=== PATIENT | male | born 1960 | race Hispanic/Latino ===

== ENCOUNTER 2018-01-02 23:15 | Emergency (ER) | payer SELFPAY ==
[2018-01-02] MEDS ORDERED: MAG HYDROX/AL HYDROX/SIMETH ES 30 ML SUSP UDCUP ONE (23:36)
[2018-01-02] MEDS ORDERED: LIDOCAINE HCL 2% VISCOUS 15 ML UDCUP ONE (23:36)
[2018-01-02] MEDS ORDERED: HYDRALAZINE HCL 20 MG/ML VIAL ONE (23:37)
[2018-01-02] MEDS: ACETAMINOPHEN-CODEINE ELIXIR 5 ML UDCUP ONE (23:59)
== END 2018-01-03 00:20 | disposition home or self-care (01) ==
LOC: EDH 23:15
DX: I10 Essential (primary) hypertension (principal); F43.9 Reaction to severe stress, unspecified; R51 Headache; K29.70 Gastritis, unspecified, without bleeding; Z87.442 Personal history of urinary calculi
CPT/HCPCS: 96374; 99284; J0360

== ENCOUNTER 2020-12-14 15:52 | Emergency (ER) | payer SELFPAY ==
[2020-12-14 16:11] LABS: BASOPHILS % (AUTO) 0.2 % (0.0-5.0); HEMATOCRIT 45.8 % (42-54); LYMPHOCYTES % (AUTO) 22.2 % (21.0-51.0); MEAN CORPUSCULAR VOLUME 87.9 fL (79-99); PLATELET COUNT (AUTO) 177 K/uL (130-400); RED BLOOD CELL COUNT(AUTO) 5.21 MIL/uL (4.50-6.20); RED CELL DISTRIBUTION WIDTH 12.7 % (11.0-15.5); WHITE BLOOD COUNT (AUTO) 4.9 K/uL (4.8-10.8)
[2020-12-14 16:19] LABS: CREATININE 1.2 mg/dL (0.5-1.5)
[2020-12-14 16:21] LABS: INR 1.03 (0.85-1.15)
[2020-12-14 16:22] LABS: PARTIAL THROMBOPLASTIN TIME 31.3 SEC (26.3-35.5)
[2020-12-14 16:24] LABS: ALBUMIN 3.7 g/dL (3.5-5.0); BILIRUBIN,TOTAL 0.5 mg/dL (0.2-1.0); TOTAL PROTEIN, SERUM 7.5 g/dL (6.0-8.3)
[2020-12-14] MEDS ORDERED: MORPHINE SULFATE 2 MG/ML 1ML SYG ONE (16:48)
[2020-12-14] MEDS ORDERED: IOHEXOL-350 75 ML VIAL IV ONE (17:34)
== END 2020-12-14 19:40 | disposition home or self-care (01) ==
LOC: EDH 15:52
DX: U07.1 COVID-19 (principal); R10.13 Epigastric pain
CPT/HCPCS: 36415; 71045; 74177; 80053; 82550; 84484 ×2; 85025; 85610; 85730; 87426; 93005 ×2; 96361; 96374; 96375; 99285; Q9967

== ENCOUNTER 2025-01-13 17:39 | Emergency (ER) | payer SELFPAY ==
[~2025-01-13] VITALS: Ht 180.3 cm; Wt 108.4 kg
--- NOTE | 2025-01-13 17:50 | ERN ---
ED Note History of Present Illness Stated Complaint: BACK PAIN Chief Complaint: Low Back Pain/Injury Time Seen by MD: 17:41 Dictation: In his a 64-year-old male coming in today with complaints of left lower lumbosacral pain tenderness that does not radiate onset was Monday. He states I did something stupid and I was lifting something heavy at work when I felt the pain in my back. Denies any past medical history, no change in bowel or bladder function no change in genitourinary function. He has not taken anything prior to arrival for pain. Allergies: Coded Allergies: No Known Allergies (Unverified Allergy, Unknown, 01/13/25) Past Medical History Past Medical History: High Cholesterol, Heart Disease, Hypertension Additional Past Medical Hx: BACK PAIN Surgical History: Other Surgical History Other: HEART STENTS, RN Note Reviewed/Agreed w/PFSH: Yes Review of System Dictation CONSTITUTIONAL: Negative except for HPI HEAD/FACE: Negative except for HPI EENT: Negative except for HPI RESPIRATORY: Negative except for HPI GASTROINTESTINAL/ABDOMINAL: Negative except for HPI GENITOURINARY: Negative except for HPI MUSCULOSKELETAL: Negative except for HPI left lumbosacral pain lateral INTEGUMENTARY: Negative except for HPI NEUROLOGICAL/PSYCH: Negative except for HPI HEMATOLOGIC/LYMPHATIC: Negative except for HPI All Systems Negative, Except as noted above. 13 point review of systems assessed and all negative except for above. Initial Vital Sign VS Vital Signs Date Time Temp Pulse Resp B/P (MAP) Pulse Ox O2 Delivery O2 Flow Rate FiO2 01/13/25 17:43 97.9 76 16 178/98 99 Room Air 0 Physical Exam Dictation Vital Signs reviewed General Appearance: Alert, oriented x 3, mild acute distress, well developed, nourished. Head and Face: non-traumatic. Eyes: PERRL, pink conjunctivas, eyelid no trauma, anterior chamber with arcus senilis. Ears: Pinnas intact and no signs of trauma or erythema ear canals clear and no discharge TM no erythema Nose: No discharge, no bleeding. Oropharynx: Mouth normal, tongue pink, pharynx clear,no erythema, tonsils no exudates, no abscesses noted, mucous membrane moist Neck: Supple, non-tender, no thyromegaly, no masses, no JVD, no bruits Breast:Deferred Chest:No tenderness, no crepitus, no paradoxical movement, no retractions Lungs:Clear, well-ventilated, symmetric, no rales, no wheezing, no rhonchi, no stridor, good breath sounds bilaterally Heart: Regular rate, regular rhythm, no murmur, no gallops Vascular: no peripheral edema, Abdomen: Soft, positive bowel sounds, nondistended, no guarding, nontender, no rebound, no masses no hepatomegaly, no splenomegaly, no Johnson's sign, no hernias. Rectal: Deferred Genital: Deferred Neurological: No decreased range of motion with tenderness to left lateral lumbosacral. Negative straight leg raise 10 bilaterally. No step-offs. No Midline spine Extremities: nontender, full range of motion Skin: Color pink, dry, no turgor, no rash, no lacerations, no abrasions, no contusions. Lymphatic: Deferred Results (Laboratory/Radiology) Laboratory/Radiology 183 LUMBAR X-RAY DEMONSTRATES DEGENERATIVE CHANGES ONLY. Labs Reviewed?: Yes ED Course ED Course Orders Procedure Category Date Status Time Ketorolac 60mg/2ml PHA 01/13/25 Complete (Toradol 60mg/2ml) 18:00 Dexamethasone 4mg/Ml PHA 01/13/25 Complete 1ml Vial (Dexametha 18:00 Hydrocodone/Apap PHA 01/13/25 Complete 5/325 ([place] 5/325mg) 18:00 Cyclobenzaprine Hcl PHA 01/13/25 Complete (Cyclobenzaprine Hcl 18:00 Lumbar Spine 2-3vws RAD 01/13/25 Taken 17:47 Current Medications Medications (Trade) Dose Ordered Sig/Finesse Route PRN Reason Start Time Stop Time Status Last Admin Dose Admin Acetaminophen/ Hydrocodone Bitart (NORco 5/325MG) 1 tab ONCE ONCE PO 01/13/25 18:00 01/13/25 18:01 DC Cyclobenzaprine HCl (Cyclobenzaprine HCl) 10 mg ONCE ONCE PO 01/13/25 18:00 01/13/25 18:01 DC Dexamethasone Sodium Phosphate (dexaMETHasone 4MG/ML 1ML VIAL) 8 mg ONCE ONCE IM 01/13/25 18:00 01/13/25 18:01 DC Ketorolac Tromethamine (toRADol 60MG/ 2ML) 60 mg ONCE ONCE IM 01/13/25 18:00 01/13/25 18:01 DC Vital Signs Date Time Temp Pulse Resp B/P (MAP) Pulse Ox O2 Delivery O2 Flow Rate FiO2 01/13/25 17:43 97.9 76 16 178/98 99 Room Air 0 835 PATIENT WILL BE DISCHARGED HOME WITH A ACUTE LUMBAR STRAIN, WE SENT HOME WITH IBUPROFEN/FLEXERIL/MEDROL DOSEPAK. GIVEN INSTRUCTIONS FOR WARM COMPRESSES THREE TO 4 TIMES A DAY AND NO LIFTING GREATER THAN 10 LB UNTIL CLEARED BY HIS DOCTOR. Medical Decision Making MDM MEDICAL DISCHARGE MAKING BASED ON PAIN MANAGEMENT FOR LUMBAR STRAIN AND X-RAY. X-RAY DEMONSTRATES TENDER DEGENERATIVE CHANGES ONLY PATIENT DISCHARGED HOME WITH A ACUTE LUMBAR STRAIN GIVEN INSTRUCTIONS FOR NO LIFTING GREATER THAN 10 LB AND TAKE MEDICATIONS DIRECTED SEE HIS PRIMARY CARE DOCTOR FOR FOLLOW UP DX & DISP Disposition: Discharge Departure Impression: Primary Impression: Acute lumbar myofascial strain Additional Impression: DJD (degenerative joint disease), lumbar Condition: Stable Scripts Methylprednisolone (Medrol) 4 Mg Tab.ds.pk 1 TAB PO AD for 6 Days, #21 TAB 0 Refills 6 on day 1 then reduce by one tablet daily until gone Prov: NEEL HARMAN NP 01/13/25 Cyclobenzaprine HCl (Cyclobenzaprine HCl) 10 Mg Tablet 1 TAB PO TID for muscle spasms for 10 Days, #30 TAB 0 Refills Prov: NEEL HARMAN NP 01/13/25 Ibuprofen (Ibuprofen 800 mg Tab) 800 Mg Tab 800 MG PO Q8H PRN for fever or pain, #30 TAB 0 Refills Prov: NEEL HARMAN NP 01/13/25 Additional Instructions: FOLLOW-UP WITH PRIMARY CARE PROVIDER IN 1 TO 2 DAYS. TAKE MEDICATIONS DIRECTED HERE IN THE EMERGENCY ROOM. OKAY TO CONTINUE HOME MEDICATIONS UNLESS OTHERWISE DISCUSSED DURING YOUR VISIT IN THE EMERGENCY ROOM TODAY. RETURN TO YOUR NEAREST EMERGENCY ROOM IF SYMPTOMS WORSEN OR IF THERE IS NO IMPROVEMENT. CALL 911 IF YOU NEED IMMEDIATE ASSISTANCE. TAKE TYLENOL OR MOTRIN [id number] NEEDED AND IF NO CONTRAINDICATIONS ARE PRESENT. INCREASE ORAL HYDRATION. A WOUND CULTURE OR URINE CULTURE WAS ORDERED HERE IN THE EMERGENCY ROOM DEPARTMENT PLEASE FOLLOW-UP WITH PRIMARY CARE PROVIDER AND ADVISE THEM TO GET REPEAT PORTS FROM OUR FACILITY. IF YOU HAD ANY JUSTINA WRAP/SPLINTS THAT WERE APPLIED HERE, PLEASE DO NOT REMOVE THEM UNTIL YOU SEE YOUR PRIMARY CARE OR SPECIALTY. NO LIFTING GREATER THAN 10 LB UNTIL CLEARED BY YOUR DOCTOR. WARM COMPRESSES TO PAIN THREE TO 4 TIMES A DAY. TAKE IBUPROFEN AND FLEXERIL EVERY8 HOURS WITH FOOD FOR THE NEXT THREE DAYS. Referrals: HARI CASILLAS MD (PCP) Time of Disposition: 18:37 I have reviewed the case, and I agree with, Diagnosis and Plan NEEL HARMAN NP Jan 13, 2025 17:50
[2025-01-13] MEDS ORDERED: IBUP-2077 PO (18:38)
[2025-01-13] MEDS ORDERED: CYCL-309 PO (18:38)
[2025-01-13] MEDS ORDERED: METH4TAB3 PO (18:38)
[2025-01-13 19:48] VITALS: BP 175/92; PULSE 75; RESP 16; TEMP 98.1; O2SAT 98
[2025-01-13] MEDS: HYDROcodone/APAP 5/325 1 TAB TABLET PO ONE (20:01)
[2025-01-13] MEDS: ketOROlac 60 MG VIAL (30MG/ML) IM ONE (20:01)
[2025-01-13] MEDS: dexaMETHasone SOD PHOSPHATE 4 MG/ML 1ML VIAL IM ONE (20:01)
[2025-01-13] MEDS: CYCLOBENZAPRINE HCL 10 MG TABLET PO ONE (20:01)
--- NOTE | 2025-01-13 20:31 | HMCIMG ---
EXAM: LUMBAR SPINE 2-3VWS REASON: Acute onset left lower lumbosacral pain after lifting four days. COMPARISON: None. TECHNIQUE: 3 views of the lumbar spine were obtained. FINDINGS: There is normal appearance of the lumbar vertebral bodies. There is moderate degenerative narrowing at L4-5 and L5-S1. There are degenerative changes in the facets. Alignment is normal. There are no visible fractures. Soft tissues appear unremarkable. IMPRESSION: 1. Moderate lumbar degenerative change, no acute finding.
== END 2025-01-13 20:24 | disposition home or self-care (01) ==
LOC: EDH 17:39
DX: S39.012A Strain of muscle, fascia and tendon of lower back, initial encounter (principal); M47.816 Spondylosis without myelopathy or radiculopathy, lumbar region; E78.00 Pure hypercholesterolemia, unspecified; I10 Essential (primary) hypertension; Z95.5 Presence of coronary angioplasty implant and graft; X58.XXXA Exposure to other specified factors, initial encounter; Y93.89 Activity, other specified; Y92.89 Other specified places as the place of occurrence of the external cause; Y99.8 Other external cause status
CPT/HCPCS: 99284; 72100; 96372 ×2; J1100; J1885

== ENCOUNTER 2025-06-02 22:37 | Emergency (ER) | payer SELFPAY ==
[~2025-06-02] VITALS: Ht 180.3 cm; Wt 114.8 kg
[~2025-06-02 22:37] MED LIST: CYCL-309 PO; IBUP-2077 PO; METH4TAB3 PO
[2025-06-02 22:39] VITALS: TEMP 98.3
[2025-06-02 23:31] LABS: IMMATURE GRANULOCYTE ABSOLUTE 0.04 K/uL (0-1); NUCLEATED RED BLOOD CELLS 0.0 % (0.0-0.19); PLATELET COUNT (AUTO) 171 K/uL (130-400); RED BLOOD CELL COUNT(AUTO) 4.98 MIL/uL (4.50-6.20); RED CELL DISTRIBUTION WIDTH 13.0 % (11.0-15.5); WHITE BLOOD COUNT (AUTO) 8.0 K/uL (4.8-10.8)
--- NOTE | 2025-06-03 00:40 | NUR ---
PER PT HIT HIS R LOWER LEG WITH HAMMER WEEK AGO. FOR PAST 2 DAYS R LOWER LEG HAS STARTED WITH REDNNESS AND MORE SWOLLEN IN COMPARISON TO LLE . T HAS HX OF CARDIAC STENTS, HTN, HIGH COLESTEROL. CURRENTLY TAKING BRILLINTA. PT DENIES ANY SOB OR CP. PULSES PALPABLE. PT DOES HAVE BILAT EDEMA TO LOWER EXTREMITES
--- NOTE | 2025-06-03 00:42 | NUR ---
PT TO US AT THIS TIME
[2025-06-03 00:45] VITALS: BP 132/84; PULSE 80; RESP 18; O2SAT 99
[2025-06-03] MEDS ORDERED: CEPH500B PO (01:22)
--- NOTE | 2025-06-03 01:24 | ERN ---
General Chief Complaint: Lower Extremity Pain/Injury Stated Complaint: C/O RT LEG PAIN W/SWELLING TO RT FOOT Time Seen by MD: 22:41 Source: patient History of Present Illness Initial Comments 64-year-old male who hit himself on his right anterior vaughan with a hammer by mistake a week ago. Since then he has noticed increased swelling in his right ankle and also redness on the anterior surface of his vaughan. No fevers or chills no difficulty walking. Allergies: Coded Allergies: No Known Allergies (Unverified Allergy, Unknown, 01/13/25) Home Meds Active Scripts Methylprednisolone (Medrol) 4 Mg Tab.ds.pk, 1 TAB PO AD for 6 Days, #21 TAB 0 Refills 6 on day 1 then reduce by one tablet daily until gone Prov:NEEL HARMAN NP 01/13/25 Cyclobenzaprine HCl (Cyclobenzaprine HCl) 10 Mg Tablet, 1 TAB PO TID for muscle spasms for 10 Days, #30 TAB 0 Refills Prov:NEEL HARMAN NP 01/13/25 Ibuprofen (Ibuprofen 800 mg Tab) 800 Mg Tab, 800 MG PO Q8H PRN for fever or pain, #30 TAB 0 Refills Prov:NEEL HARMAN NP 01/13/25 Past Medical History Past Medical History: High Cholesterol, Hypertension Medical History Other: BACK PAIN Past Surgical History: Other Surgical History Other: CARDIAC STENTS Constitutional: (-) chills, (-) diaphoresis, (-) fever, (-) malaise, (-) weakness, (-) other documentation EENTM: (-) eye pain, (-) blurred vision, (-) tearing, (-) double vision, (-) ear pain, (-) ear discharge, (-) nose pain, (-) nose congestion, (-) throat pain, (-) Throat swelling, (-) mouth pain, (-) tooth pain, (-) mouth swelling, (-) other documentation Respiratory: (-) cough, (-) orthopnea, (-) short of breath, (-) stridor, (-) wheezing, (-) other documentation Cardiovascular: (-) chest pain, (-) edema, (-) palpitations, (-) syncope, (-) dyspnea on exertion, (-) other documentation Gastrointestinal/Abdominal: (-) nausea, (-) vomiting, (-) diarrhea, (-) abdominal pain, (-) abdominal distention, (-) constipation, (-) rectal bleeding, (-) dark stool/melena, (-) other documentation Musculoskeletal: (-) Neck pain, (-) back pain, (-) Flank Pain, (-) joint pain, (-) joint swelling, (-) muscle pain, (-) muscle stiffness, (-) gout, (-) other documentation Skin: (+) other documentation (Right anterior calf is red and warm.) Physical Exam Extremities Comment Right anterior vaughan has some warmth and erythema. The distal ankle is swollen with the edema. It is nontender it is soft. Results Laboratory and Microbiology Lab and Micro Result Laboratory Tests Test 06/02/25 23:26 White Blood Count 8.0 K/uL (4.8-10.8) Red Blood Count 4.98 MIL/uL (4.50-6.20) Hemoglobin 14.7 g/dL (14.0-18.0) Hematocrit 44.8 % (42-54) Mean Corpuscular Volume 90.0 fL (79-99) Mean Corpuscular Hemoglobin 29.5 pg (27.0-33.0) Mean Corpuscular Hemoglobin Concent 32.8 g/dL (32.0-36.0) Red Cell Distribution Width 13.0 % (11.0-15.5) Platelet Count 171 K/uL (130-400) Mean Platelet Volume 10.0 fL (7.5-10.5) Immature Granulocyte % (Auto) 0.5 % (0-1) Neutrophils (%) (Auto) 68.7 % (40.0-77.0) Lymphocytes (%) (Auto) 19.1 % (21.0-51.0) L Monocytes (%) (Auto) 7.5 % (3.0-13.0) Eosinophils (%) (Auto) 3.6 % (0.0-8.0) Basophils (%) (Auto) 0.6 % (0.0-5.0) Neutrophils # (Auto) 5.5 K/uL (1.8-7.7) Lymphocytes # (Auto) 1.5 K/uL (1.0-4.8) Monocytes # (Auto) 0.6 K/uL (0.1-1.0) Eosinophils # (Auto) 0.29 K/uL (0.00-0.70) Basophils # (Auto) 0.05 K/uL (0.00-0.20) Absolute Immature Granulocyte (auto 0.04 K/uL (0-1) Nucleated Red Blood Cells 0.0 % (0.0-0.19) B-Type Natriuretic Peptide 53 pg/mL (0-100) MDM Ultrasound of the patient's bilateral lower extremities for DVTs was negative. They did see a hypoechoic area with the increased vascularity approximately 3.5 x 1 x 3 point 1 cm ED Course Orders Procedure Category Date Status Time Us Venous Doppler US 06/02/25 Taken Bilateral 23:17 Cbc With Differential LAB 06/02/25 Complete 23:17 B-Type Natriuretic LAB 06/02/25 Complete Peptide 23:17 Vital Signs Date Time Temp Pulse Resp B/P (MAP) Pulse Ox O2 Delivery O2 Flow Rate FiO2 06/03/25 00:45 80 18 132/84 99 Room Air* 0 21 06/02/25 23:29 64 18 132/91 98 Room Air* 0 21 06/02/25 22:39 98.2 71 20 166/89 97 Room Air DX & DISP Disposition: Discharge Departure Impression: Primary Impression: Hematoma of right lower leg Condition: Stable Scripts Cephalexin Monohydrate (Keflex) 500 Mg Cap 500 MG PO QID for 7 Days, #28 CAP Prov: STEFANIA HENRY MD 06/03/25 Additional Instructions: You have a collection of blood underneath her skin most likely from when the hammer hit your vaughan. Your body will absorb it over time. Keeping the leg raised when your sitting and treating it with warm compresses we will help. You can take Tylenol and or ibuprofen for pain. I have written a prescription for antibiotics treat the skin warmth. It may not be an infection it may just be a reaction to the blood underneath the skin but I have written for a few days of antibiotics to be safe. Please return if the redness on your anterior vaughan gets worse and starts to spread up her leg. Also feel free to come back if you think that the blood circulation to your foot is getting bad. The swelling should go down in the next week or so. Feel free to follow up with her primary care physician if it does not. Referrals: JED ROJAS MD (PCP) STEFANIA HENRY MD Jun 03, 2025 01:24
--- NOTE | 2025-06-03 02:10 | HMCIMG ---
EXAM: US for Deep Venous Thrombosis, bilateral Lower Extremity. CLINICAL HISTORY: Swelling. TECHNIQUE: Real-time ultrasound scan of the veins of the bilateral lower extremity with color Doppler flow, spectral waveform analysis, and compression. COMPARISON: None provided. FINDINGS: DEEP VEINS: The common femoral, superficial femoral, and popliteal veins are echolucent and compressible. There is normal color Doppler flow throughout. The visualized calf veins appear patent. SOFT TISSUES: In the right anterior calf area, there is a hypoechoic area with no vascularity measuring 3.5 x 1.0 x 3.1 cm, likely a hematoma. 3.5 cm enlarged lymph node in the right groin region. IMPRESSION: No deep venous thrombosis is evident on bilateral lower extremity examination. In the right anterior calf area, there is a hypoechoic area with no vascularity measuring 3.5 x 1.0 x 3.1 cm, likely a hematoma. Right groin lymphadenopathy. /Marisa
== END 2025-06-03 01:35 | disposition home or self-care (01) ==
LOC: EDH 22:37
DX: S80.11XA Contusion of right lower leg, initial encounter (principal); E78.00 Pure hypercholesterolemia, unspecified; I10 Essential (primary) hypertension; M79.661 Pain in right lower leg; Z95.5 Presence of coronary angioplasty implant and graft; Z79.899 Other long term (current) drug therapy; W22.8XXA Striking against or struck by other objects, initial encounter; Y93.89 Activity, other specified; Y92.89 Other specified places as the place of occurrence of the external cause; Y99.8 Other external cause status
CPT/HCPCS: 36415; 83880; 85025; 93970; 99284